=== PATIENT | female | born 1995 | race Caucasian/White ===

== ENCOUNTER 2018-04-20 07:17 | Emergency (ER) | payer OTHER ==
[2018-04-20] MEDS ORDERED: KETOROLAC 30 MG/1 ML SDV IVP ONE (07:43)
[2018-04-20] MEDS ORDERED: PROMETHAZINE HCL 25 MG/ML INJ IVP ONE (07:43)
[2018-04-20] MEDS ORDERED: NS 1,000 ML IV ONE (07:43)
--- NOTE | 2018-04-20 07:49 | EDPHY ---
H & P Stated Complaint: abd pain, n/v Time Seen by Provider: 04/20/18 07:28 HPI/ROS: CHIEF COMPLAINT: Nausea vomiting, mid back pain HISTORY OF PRESENT ILLNESS: This is a 22-year-old female with a history of reactive airway disease and depression who presents with nausea, vomiting, and mid bilateral back pain. All of this began last night. She tells me that she has been vomiting hourly since it began. No diarrhea. No fever. The back pain came on after the vomiting began. She points to her lower thoracic upper lumbar spine when asked to localize the pain and states that it radiates across both sides of her back. She also has lower chest and abdominal pain, slightly worse in the upper abdomen but involving the entire abdomen. She describes the pain as severe. She has not been able to keep in any food or liquids since this began. No difficulty breathing. No trauma. She smokes marijuana with some regularity. REVIEW OF SYSTEMS: A ten system review of systems was performed and is negative with the exception of the items mentioned in the HPI. Past medical history: 1. Depression 2. Reactive airway disease, no emergency department visits or hospitalizations Past surgical history: 1. Left ear canal reconstruction 2. 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 She lives in [place], [place]. She smokes marijuana and uses tobacco. General Appearance: Alert. Vital signs reviewed. Crying when I arrive in the room. Sitting up on the bed rocking back and forth and occasionally crying out with pain. Eyes: Pupils equal and round, mild bilateral conjunctival injection, no discharge. Anicteric. ENT, Mouth: Mucous membranes are moist, no oropharyngeal erythema or edema. Neck: No lymphadenopathy, supple. Respiratory: Lungs are clear to auscultation; no wheezes, rales, or rhonchi. Cardiovascular: Tachycardic and regular; no murmur, rub, or gallop. Gastrointestinal: Abdomen is soft and nontender, no masses or organomegaly, bowel sounds normal. Skin: Warm and dry, no rashes on exposed skin, normal color. Back: Nontender to palpation over the thoracolumbar spine. Bilateral CVAT, worse on the left than on the right. Extremities: No lower extremity edema, no calf tenderness or swelling. Neurological: Alert and oriented. Moving all four extremities easily and equally. Psychiatric: Tearful. Anxious. - Personal History Current Tetanus/Diphtheria Vaccine: Yes Current Tetanus Diphtheria and Acellular Pertussis (TDAP): Yes - Medical/Surgical History Hx Asthma: Yes Hx Chronic Respiratory Disease: No Hx Diabetes: No Hx Cardiac Disease: No Hx Renal Disease: No Hx Cirrhosis: No Hx Alcoholism: No Hx HIV/AIDS: No Hx Splenectomy or Spleen Trauma: No Other PMH: asthma, L ear surgery, tonsilectomy, adenoidectomy - Social History Smoking Status: Current every day smoker Constitutional: Initial Vital Signs Temperature (C) 36.9 C 04/20/18 07:22 Heart Rate 112 H 04/20/18 07:22 Respiratory Rate 24 H 04/20/18 07:22 Blood Pressure 112/83 H 04/20/18 07:22 O2 Sat (%) 99 04/20/18 07:22 O2 Delivery Mode Room Air Allergies/Adverse Reactions: amoxicillin Allergy (Verified 04/20/18 07:22) Cephalosporins Allergy (Verified 04/20/18 07:22) Penicillins Allergy (Verified 04/20/18 07:22) sulfamethoxazole [From Bactrim] Allergy (Verified 04/20/18 07:22) trimethoprim [From Bactrim] Allergy (Verified 04/20/18 07:22) Home Medications: Medication Instructions Recorded Lexapro 04/20/18 Promethazine HCl [Phenergan 25mg 25 mg PO Q8 PRN #6 tab 04/20/18 (*)] Symbicort 160-4.5 Mcg Inh (*) 04/20/18 Vitamin D3 04/20/18 Medical Decision Making ED Course/Re-evaluation: 22-year-old female with nausea and vomiting that has been persistent throughout the night. She is now experiencing upper back, chest, and abdominal pain that she describes as severe. Initial diagnostic considerations include but are not limited to cyclic vomiting syndrome, gastritis, cholecystitis, pancreatitis, pneumothorax, peptic ulcer disease/ruptured viscus. Initial approaches to control her nausea/vomiting and pain. An IV has been started and she is being given 1 L normal saline. For pain control she is given Toradol 15 mg IV and Dilaudid 0.5 mg IV. Blood work sent--CBC, chemistries, lipase, liver functions, and test. Chest x-ray to assess for infection and pneumothorax. When her pain is under control she will be reexamined. The examination is difficult because she has trouble holding still. I reviewed her chest x-ray. No pneumothorax or acute pulmonary disease. There is some loss of vertebral height in the lower thoracic spine, T11 through L1. 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 I have reviewed the radiology report. I re- examined her back and she is not tender over the thoracic or lumbar spine in the midline. There is no mediastinal widening and I do not suspect aortic dissection. With the above treatments she was more comfortable and I was able to more thoroughly examine her. Her abdomen is soft and nontender. Vomiting was controlled in the emergency department and she was rehydrated. Urinalysis is positive for ketones, no signs of infection. CBC shows a mild elevation in her white blood cell count, otherwise normal. Chemistries within normal limits. Liver functions and lipase normal. I do not suspect cholecystitis or pancreatitis based upon laboratory findings and repeat abdominal exams. She is not . She remained without significant abdominal tenderness (serial exams performed) and had no further vomiting. She feels that she can safely return home and I agree. Vital signs have normalized. I suspect either gastritis or a cyclic vomiting syndrome. We discussed cyclic vomiting syndrome--she had not been aware of this syndrome. She understands that it is likely related to marijuana use. We also reviewed the danger signs that should prompt her to return for another evaluation. She is referred to a primary care physician. She is given a prescription for Phenergan to use if needed. Zofran was avoided because of her use of Lexapro and the potential for QT prolongation. - Data Points Laboratory Results: Laboratory Results 04/20/18 07:50 04/20/18 07:50 Medications Given: Discontinued Medications Hydromorphone HCl (Dilaudid) 0.5 mg IVP EDNOW ONE Stop: 04/20/18 07:51 Last Admin: 04/20/18 07:58 Dose: 0.5 mg Sodium Chloride (Ns) 1,000 mls @ 0 mls/hr IV EDNOW ONE; Wide Open PRN Reason: Protocol Stop: 04/20/18 07:44 Last Admin: 04/20/18 07:56 Dose: 1,000 mls Ketorolac Tromethamine (Toradol) 15 mg IVP EDNOW ONE Stop: 04/20/18 07:44 Last Admin: 04/20/18 07:57 Dose: 15 mg Promethazine HCl (Phenergan) 12.5 mg IVP EDNOW ONE Stop: 04/20/18 07:44 Last Admin: 04/20/18 07:57 Dose: 12.5 mg Departure - Departure Disposition: Home, Routine, Self-Care Clinical Impression: Vomiting Qualifiers: Vomiting type: unspecified Vomiting Intractability: non-intractable Nausea presence: without nausea Qualified Code(s): R11.11 - Vomiting without nausea Condition: Good Instructions: Acute Nausea and Vomiting (ED), Cyclic Vomiting Syndrome (ED) Additional Instructions: Use the phenergan if your nausea returns. If you have any urinary symptoms--blood in your urine, difficulty urinating, pain with urination, frequent urination--please be rechecked. Adult Pain & Fever Control: We recommend Acetaminophen (Tylenol) and Ibuprofen (Motrin,Advil) for pain and fever control. When fever is high or pain severe, both drugs can be used at the same time, but at different intervals. Please note the time differences. Your dose is: Acetaminophen [650]mg every 4 to 6 hours Ibuprofen [400]mg every [6] hours with food OR Note: do not take Acetaminophen with Hydrocodone (Vicodin, Lortab) or Oycodone (Percocet). These medications also contain Acetaminophen. No more than 3000mg of Acetaminophen should be taken in 24 hours (for an adult). I am giving you some printed information about cyclic vomiting syndrome. This is just for your information--I do not know whether or not you have this. Referrals: Nettie Leblanc MD [Medical Doctor] - As per Instructions Prescriptions: Promethazine HCl [Phenergan 25mg (*)] 25 mg PO Q8 PRN #6 tab PRN Reason: Nausea/Vomiting, Use 1st
[2018-04-20] MEDS ORDERED: HYDROmorphONE/DILAUDID 2 MG/ML INJ IVP ONE (07:50)
[2018-04-20 07:55] LABS: PLATELET COUNT 244 10^3/uL (150-400)
[2018-04-20 10:34] VITALS: BP 98/61
== END 2018-04-20 10:38 | disposition home or self-care (01) ==
DX: R11.11 Vomiting without nausea (principal); F32.9 Major depressive disorder, single episode, unspecified; J45.909 Unspecified asthma, uncomplicated; E86.9 Volume depletion, unspecified
CPT/HCPCS: 96374; J1170; J1885; J2550